=== PATIENT | male | born 1985 | race Asian ===

== ENCOUNTER 2019-12-24 00:02 | Emergency (ER) | payer OTHER ==
[~2019-12-24] VITALS: Ht 165.1 cm; Wt 83.9 kg
[2019-12-24 00:02] VITALS: Ht 165.1 cm; Wt 83.9 kg
[2019-12-24 00:50] VITALS: BP 111/77
== END 2019-12-24 01:35 | disposition home or self-care (01) ==
LOC: ED 00:02
DX: F10.129 Alcohol abuse with intoxication, unspecified (principal); Y90.9 Presence of alcohol in blood, level not specified
CPT/HCPCS: G0480; Q0092